=== PATIENT | male | born 1965 | race Caucasian/White ===

== ENCOUNTER 2023-01-10 09:03 | Emergency (ER) | payer MEDICAID, OTHER ==
[~2023-01-10] VITALS: Ht 175.3 cm; Wt 59.1 kg
[2023-01-10 09:30] VITALS: BP 128/74
[2023-01-10] MEDS ORDERED: ATOR40TA71 PO (09:32)
[2023-01-10] MEDS ORDERED: HYDR-4808 PO (09:32)
[2023-01-10] MEDS ORDERED: LATA2.5D14 OU (09:32)
[2023-01-10] MEDS ORDERED: MEGE20TA3 PO (09:32)
[2023-01-10] MEDS ORDERED: TIMO5DRO7 OU (09:32)
[2023-01-10] MEDS ORDERED: ESCI10 PO (09:32)
== END 2023-01-10 10:32 | disposition left against medical advice (07) ==
LOC: EMS 09:03
DX: Z53.21 Procedure and treatment not carried out due to patient leaving prior to being seen by health care provider (principal)

== ENCOUNTER 2023-01-11 07:41 | Emergency (ER) | payer OTHER ==
[~2023-01-11] VITALS: Ht 180.3 cm; Wt 61.4 kg
[~2023-01-11 07:41] MED LIST: ATOR40TA71 PO; ESCI10 PO; HYDR-4808 PO; LATA2.5D14 OU; MEGE20TA3 PO; TIMO5DRO7 OU
[2023-01-11] MEDS ORDERED: IBUPROFEN 600 MG TABLET PO ONE (08:15)
[2023-01-11 15:34] VITALS: BP 99/66
== END 2023-01-11 16:42 | disposition left against medical advice (07) ==
LOC: EMS 07:45
DX: S42.001A Fracture of unspecified part of right clavicle, initial encounter for closed fracture (principal); F41.9 Anxiety disorder, unspecified; F32.A Depression, unspecified; E78.00 Pure hypercholesterolemia, unspecified; F17.210 Nicotine dependence, cigarettes, uncomplicated; W19.XXXA Unspecified fall, initial encounter; Y93.89 Activity, other specified; Y92.89 Other specified places as the place of occurrence of the external cause; Y99.8 Other external cause status
CPT/HCPCS: 71046; 99284

== ENCOUNTER 2023-12-19 12:50 | Emergency (ER) | payer OTHER ==
[~2023-12-19] VITALS: Ht 175.3 cm; Wt 54.5 kg
[~2023-12-19 12:50] MED LIST changes: +TIMO5DRO18 OU; -TIMO5DRO7 OU
[2023-12-19 13:15] VITALS: TEMP 97.9
[2023-12-19 14:05] VITALS: BP 130/76; PULSE 94; RESP 16
[2023-12-19] MEDS ORDERED: BACITRACIN 0.9 GM PACKET OINTMENT TP ONE (14:30)
[2023-12-19] MEDS ORDERED: DOXYCYCLINE HYCLATE 100 MG TABLET PO ONE (14:30)
[2023-12-19] MEDS ORDERED: PERTUSS(ACELL),DIPH,TET VAC/PF 0.5 ML SYRINGE IM. ONE (14:30)
[2023-12-19] MEDS ORDERED: DOXY-354 PO (15:53)
[2023-12-19] MEDS ORDERED: BACI28.410 TP (15:53)
[2023-12-19] MEDS ORDERED: ACET-3385 PO (15:53)
== END 2023-12-19 16:03 | disposition home or self-care (01) ==
LOC: EMS 12:50
DX: S01.81XA Laceration without foreign body of other part of head, initial encounter (principal); F41.9 Anxiety disorder, unspecified; F32.A Depression, unspecified; E78.00 Pure hypercholesterolemia, unspecified; F17.210 Nicotine dependence, cigarettes, uncomplicated; W19.XXXA Unspecified fall, initial encounter; Y93.01 Activity, walking, marching and hiking; Y92.89 Other specified places as the place of occurrence of the external cause; Y99.8 Other external cause status
CPT/HCPCS: 70450; 72125; 90471; 90715; 99285

== ENCOUNTER 2024-09-15 10:14 | Emergency (ER) | payer OTHER ==
[~2024-09-15] VITALS: Ht 175.3 cm; Wt 53.6 kg
[~2024-09-15 10:14] MED LIST changes: +ACET-3385 PO; -ESCI10 PO; +ONDA-104 PO
[2024-09-15 10:24] VITALS: TEMP 97.1
[2024-09-15 11:42] LABS: BASOPHILS % (AUTO) 0.7 % (0.0-2.0); EOSINOPHILS % (AUTO) 8.1 % (1.0-6.0); HEMATOCRIT 28.8 % (41-53); HEMOGLOBIN 9.6 g/dL (13.5-17.5); LYMPHOCYTES # (AUTO) 1.2 K/uL (1.0-4.8); LYMPHOCYTES % (AUTO) 23.6 % (22.0-44.0); MEAN CORPUSCULAR HEMOGLOBIN 32.1 pg (26.0-34.0); MEAN CORPUSCULAR HGB CONC 33.3 G/dL (31.0-37.0); MEAN CORPUSCULAR VOLUME 96 fL (80-100); MONOCYTES # (AUTO) 0.7 K/uL (0.1-1.0); MONOCYTES % (AUTO) 14.3 % (2.0-9.0); NEUTROPHILS # (AUTO) 2.7 K/uL (1.8-7.7); NEUTROPHILS % (AUTO) 53.3 % (40.0-70.0); PLATELET COUNT (AUTO) 220 K/uL (150-450); RED BLOOD CELL COUNT(AUTO) 2.99 MIL/uL (4.50-5.90); RED CELL DISTRIBUTION WIDTH 13.6 % (11.5-14.5)
[2024-09-15 11:48] LABS: CALCIUM, TOTAL 9.2 mg/dL (8.8-10.5); CREATININE 1.33 mg/dL (0.60-1.30); POTASSIUM 4.7 mmol/L (3.5-5.1)
[2024-09-15] MEDS: KETOROLAC TROMETHAMINE 60 MG/2 ML VIAL IM ONE (12:23)
[2024-09-15 12:34] LABS: TROPONIN I-HIGH SENSITIVITY 4 ng/L (<76)
[2024-09-15 12:52] VITALS: BP 112/72; PULSE 76; RESP 18; O2SAT 98
[2024-09-15] MEDS ORDERED: ACET-2080 PO (12:53)
[2024-09-15] MEDS ORDERED: IBUP-1554 PO (12:53)
[2024-09-15] MEDS ORDERED: METH-659 PO (12:53)
== END 2024-09-15 13:05 | disposition home or self-care (01) ==
LOC: EMS 10:14
DX: N28.9 Disorder of kidney and ureter, unspecified (principal); D64.9 Anemia, unspecified; K74.60 Unspecified cirrhosis of liver; R07.89 Other chest pain; F41.9 Anxiety disorder, unspecified; E78.00 Pure hypercholesterolemia, unspecified
CPT/HCPCS: 99285; 71045; 80048; 84484; 85025; 36415; 93005; 96372; J1885

== ENCOUNTER 2025-04-03 09:28 | Emergency (ER) | payer OTHER ==
[~2025-04-03] VITALS: Ht 172.7 cm; Wt 54.5 kg
[~2025-04-03 09:28] MED LIST changes: +ACET-2080 PO; +IBUP-1554 PO; +METH-659 PO
[2025-04-03 09:39] VITALS: BP 123/78; PULSE 103; RESP 18; TEMP 98; O2SAT 100
[2025-04-03] MEDS: TraMADol HCL 50 MG TABLET PO ONE (10:29)
[2025-04-03] MEDS ORDERED: IBUP-1492 PO (11:24)
== END 2025-04-03 12:17 | disposition home or self-care (01) ==
LOC: EMS 09:29
DX: R51.9 Headache, unspecified (principal); M54.2 Cervicalgia; M54.50 Low back pain, unspecified; E78.00 Pure hypercholesterolemia, unspecified; F41.9 Anxiety disorder, unspecified; V43.52XA Car driver injured in collision with other type car in traffic accident, initial encounter; Y93.89 Activity, other specified; Y92.410 Unspecified street and highway as the place of occurrence of the external cause; Z79.899 Other long term (current) drug therapy
CPT/HCPCS: 70450; 71045; 72125; 72128; 72131; 99284